=== PATIENT | male | born 1965 | race Caucasian/White ===

== ENCOUNTER 2019-09-12 08:07 | Emergency (ER) | payer BC, SELFPAY ==
[2019-09-12 08:21] VITALS: BP 142/92; PULSE 77; RESP 16; TEMP 36.3; O2SAT 99
--- NOTE | 2019-09-12 08:25 | ED.SKABFB ---
HPI - Skin/Abscess/Foreign Bdy General Chief complaint: Skin/Abscess/Foreign Body Stated complaint: Bump on bottom History of Present Illness HPI narrative: This is a 54-year-old male comes in complaining of having an abscess on his rectal area states that it itches and causes him pain. Patient states that he has been putting some hemorrhoid cream on it that is not working patient denies any bleeding been going on for the approximately 3 to 4 weeks his told him he should come have it checked out patient states he currently lives here he just moved does not have a primary care provider. Related Data Home Medications Medication Instructions Recorded Confirmed No Home Medications 09/12/19 09/12/19 Allergies Allergy/AdvReac Type Severity Reaction Status Date / Time No Known Allergies Allergy Verified 09/12/19 08:32 Review of Systems Review of Systems: Narrative: CONSTITUTIONAL: Denies fever, chills, or sweats. EYES: Denies visual changes, redness, or discharge. ENT: Denies rhinorrhea, congestion, sore throat, or otalgia. CARDIOVASCULAR:Denies chest pain, palpitations, or edema. RESPIRATORY: Denies cough or dyspnea. GASTROINTESTINAL: Denies abdominal pain, nausea, vomiting, or diarrhea. GENITOURINARY: Denies dysuria or hematuria. SKIN:[Denies rash or itching. MUSCULOSKELETAL:Denies back pain, joint pain, or myalgia. Rectal nodule NEUROLOGIC: Denies headache, numbness, or weakness. PSYCHIATRIC:Denies anxiety or depression PMFSH Social History Social History Smoking status: Never smoker Second hand tobacco smoke exposure: No Alcohol intake: current Gender identity (if verbalized by the patient): Male Comments At time as signature, I have reviewed and agree with nursing past medical, social, surgical and family history. Please see nursing chart for further information. There is no relevant family history pertinent to the presenting complaint. Exam Narrative: Exam Narrative: GENERAL:Well-appearing, well-nourished, and in no acute distress. HEAD:Normocephalic, atraumatic. EYES: PERRLA and EOMI. ENT: Nares clear, no rhinorrhea or epistaxis. Mucous membranes moist. NECK: Supple. CHEST: Clear to auscultation. No respiratory distress. HEART: Regular rate and rhythm. No murmur heard. Normal peripheral pulses. ABDOMEN: Soft, nontender, nondistended, normal active bowel sounds. painful swelling in the anal tissues EXTREMITIES: Normal range of motion. No edema. SKIN: Warm, dry, no rash. NEURO: No focal deficits. Alert and oriented x3. Course Vital Signs Vital signs: Vital Signs Temperature 97.3 F L 09/12/19 08:21 Pulse Rate 77 09/12/19 08:21 Respiratory Rate 16 09/12/19 08:21 Blood Pressure 142/92 H 09/12/19 08:21 Pulse Oximetry 99 09/12/19 08:21 Temperature 97.3 F L 09/12/19 08:21 Pulse Rate 77 09/12/19 08:21 Respiratory Rate 16 09/12/19 08:21 Blood Pressure 142/92 H 09/12/19 08:21 Pulse Oximetry 99 09/12/19 08:21 MDM - Skin/Abscess/Foreign Bdy Differential Diagnosis Differential diagnosis: Likely abscess of skin or subcutaneous tissue and cellulitis Discharge Plan Discharge Clinical Impression: External hemorrhoid, thrombosed Patient Disposition: Home, Self-Care Condition: Stable Instructions: Antibiotic Form, Hemorrhoids (ED) Prescriptions: New hydrocortisone-pramoxine 2.5-1 % cream 1 applic RECTAL QID Qty: 30 RF: 0 No Action No Home Medications RF: 0 Follow-up/Referrals: UNKNOWN,DOCTOR [Primary Care Provider] - Time of Disposition: 08:35 Discharge Date/Time: 09/12/19 08:38
== END 2019-09-12 08:38 | disposition home or self-care (01) ==
PROVIDERS: Emergency Provider Nurse Practitioner Family
DX: K64.5 Perianal venous thrombosis (principal)
CPT/HCPCS: 99213; G0463

== ENCOUNTER 2020-01-02 01:58 | Outpatient (CLI) | payer BC, SELFPAY ==
[2020-01-02 18:09] LABS: SARS-CoV-2 RNA PCR Negative
== END 2020-01-02 01:59 | disposition home or self-care (01) ==
LOC: ANHCOVIDDT 01:58
PROVIDERS: Visit Provider Internal Medicine Gastroenterology
DX: Z01.818 Encounter for other preprocedural examination (principal); Z11.59 Encounter for screening for other viral diseases
CPT/HCPCS: 87635; C9803; U0003

== ENCOUNTER 2020-01-05 03:31 | Day surgery (SDC) | payer BC, SELFPAY ==
[2020-01-01 09:41] VITALS: BMI 26.0
[2020-01-05 11:36] VITALS: BP 136/94; PULSE 67; RESP 18; TEMP 36.6; O2SAT 100
[2020-01-05] MEDS: LACTATED RINGERS 1,000 ML 150 ML IV CONT (11:43)
--- NOTE | 2020-01-05 12:03 | WPDANESEPPF ---
Anes - Initial Pre Proc Eval Procedure: Operation Date: 01/05/20 12:30 Proposed Procedures p Screening Colonoscopy - Hira Lind MD Date/Time: 01/05/20 12:03 Surgeon: Hira Lind MD Pre Op Diagnosis: Neoplasm Screening Patient Data Age: 54 Gender: M Height: 5 ft 9 in Weight: 76.7 kg Last Vital Signs Temp 36.6 C 01/05/20 11:36 Pulse 67 01/05/20 11:36 Resp 18 01/05/20 11:36 BP 136/94 H 01/05/20 11:36 Pulse Ox 100 01/05/20 11:36 Allergies Allergy/AdvReac Type Severity Reaction Status Date / Time No Known Allergies Allergy Verified 01/05/20 11:34 Home Medications Medication Instructions Recorded Confirmed Type mesalamine 1.2 gram tablet,delayed 3.6 gm PO DAILY 30 Days #90 tablet 12/18/19 01/01/20 Rx release cholecalciferol (vitamin D3) 10 mcg PO DAILY 01/01/20 01/01/20 History [Vitamin D3] cyanocobalamin (vitamin B-12) 1,000 mcg PO DAILY 01/01/20 01/01/20 History [Vitamin B-12] omega 1-wrd-oie-fish oil [Fish Oil] 1 cap PO DAILY 01/01/20 01/01/20 History red yeast rice 600 mg PO DAILY 01/01/20 01/01/20 History triamcinolone acetonide 1 applic TOPICAL PRN PRN 01/01/20 01/01/20 History Patient hx anesthesia problems: none Family hx anesthesia problems: none [facility] Past Medical History Medical History Blood in stool Ulcerative proctitis Social History Social History Smoking status: Never smoker Second hand tobacco smoke exposure: No Alcohol intake: current Gender identity (if verbalized by the patient): Male Anes - Eval Final PreProcedure Day of Procedure 01/05/20 12:03 Patient weight: normal Heart: regular rate and rhythm Lungs: clear to auscultation Airway: Mallampati scale class II Neurological: alert and oriented Last oral intake: >/= 8 hours ASA classification: II Emergent: no Anesthetic plan: proceed Anesthesia type and monitoring: general GIVS and standard monitoring Informed Consent: The patient's anesthetic plan and its attendant risks and benefits were discussed with the patient/family/POA. Questions were solicited and answers provided to the satisfaction of the patient/family/POA.
--- NOTE | 2020-01-05 13:42 | WPDHPUPDATE1 ---
History and Physical Update Update Date/Time: 01/05/20 13:42 History and Physical has been reviewed, including an updated exam of the patient. There are NO changes in the patient's condition. Risks, benefits, and alternatives have been discussed and questions answered. Patient agrees to proceed with procedure.
[2020-01-05 13:44] VITALS: BP 105/68; PULSE 52; RESP 14; O2SAT 96
[2020-01-05 13:54] VITALS: BP 126/83; PULSE 52; RESP 14; O2SAT 96
[2020-01-05 14:04] VITALS: BP 139/87; PULSE 49; RESP 14; O2SAT 96
== END 2020-01-05 14:25 | disposition home or self-care (01) ==
PROVIDERS: Visit Provider Internal Medicine Gastroenterology
PROC: 0DJD8ZZ Inspection of Lower Intestinal Tract, Via Natural or Artificial Opening Endoscopic (ICD-10-PCS; CPT 45378; principal; 2020-01-05 12:30)
DX: K52.9 Noninfective gastroenteritis and colitis, unspecified (principal); K51.20 Ulcerative (chronic) proctitis without complications
CPT/HCPCS: 45380; 88305; J2704; J7120

== ENCOUNTER 2020-09-04 10:47 | Emergency (ER) | payer BC, SELFPAY ==
[2020-09-04 11:01] VITALS: BP 137/83; PULSE 64; RESP 16; TEMP 36.4; O2SAT 99
--- NOTE | 2020-09-04 11:02 | ED.EYEPROB ---
HPI - Eye Problem General Chief complaint: Eye Problems Stated complaint: right eye redness/swelling Time Seen by Provider: 09/04/20 11:02 Source: patient Mode of arrival: ambulatory Limitations: no limitations History of Present Illness HPI Narrative: Dax John is a 55 yo male with a PMH of ulcerative proctitis who [facility] with swelling of his right eyelid that started 7 days ago with irritation. small lesion o upper lid, inner canthus. Patient has history of stye Related Data Home Medications Medication Instructions Recorded Confirmed cholecalciferol (vitamin D3) 10 mcg PO DAILY 01/01/20 09/04/20 [Vitamin D3] cyanocobalamin (vitamin B-12) 1,000 mcg PO DAILY 01/01/20 09/04/20 [Vitamin B-12] omega 0-xdl-xfw-fish oil [Fish Oil] 1 cap PO DAILY 01/01/20 01/01/20 red yeast rice 600 mg PO DAILY 01/01/20 01/01/20 triamcinolone acetonide 1 applic TOPICAL PRN PRN 01/01/20 01/01/20 mesalamine 1.2 g PO DAILY 09/04/20 09/04/20 Allergies Allergy/AdvReac Type Severity Reaction Status Date / Time No Known Allergies Allergy Verified 01/05/20 11:34 Review of Systems Review of Systems: Narrative: CONSTITUTIONAL: Denies fever, chills, sweats. EYES: Right upper lid swelling on inner canthus x 1 week ENT: Denies rhinorrhea, congestion, sore throat, otalgia. CARDIOVASCULAR: Denies chest pain, palpitations, edema. RESPIRATORY: Denies dyspnea, wheezing, cough GASTROINTESTINAL: Denies abdominal pain, nausea, vomiting, diarrhea. GENITOURINARY: Denies dysuria, hematuria, abnormal discharge SKIN: Denies rash or itching. NEUROLOGIC: Denies numbness, or focal weakness. PSYCHIATRIC: Denies anxiety or depression. COUNT INCLUDES THE [facility] Past Medical History Medical History (Updated 09/04/20 @ 11:21 by Nilam Rosas CNP) Blood in stool Ulcerative proctitis Social History Social History Smoking status: Never smoker Second hand tobacco smoke exposure: No Alcohol intake: current Gender identity (if verbalized by the patient): Male Comments At time of signature, I agree with nursing past medical, surgical, social and family history. There is no relevant family history pertinent to the presenting complaint. Exam Narrative: Exam Narrative: GENERAL: This is a well-nourished, well-developed patient, in mild distress. HEAD: normocephalic, atraumatic. EYES: PERRL. Sclera clear/white. Vision is grossly intact. Swelling right upper eyelid inner canthus with complaints of some visual disturbance because of size of lesion EARS: External ears normal, . Hearing grossly intact. NOSE: External nose normal without nasal discharge, nares without redness, no rhinorrhea. THROAT: Mucous membranes moist, NECK: Neck supple CARDIOVASCULAR: Regular rate and rhythm without murmurs, gallops, or rubs. RESPIRATORY: Clear to auscultation. Breath sounds equal bilaterally. No wheezes, rales, or rhonchi. GASTROINTESTINAL: Abdomen soft, non-tender, SKIN: warm, intact with no suspicious lesions or rash, good texture and turgor. NEURO: awake, alert, and oriented to person, place and time. There were no obvious focal neurologic abnormalities. Steady gait EXTREMITIES: Normal range of motion. BACK: Nontender without deformity Course Course Emergency Course: Patient comes with hordeolum right upper lid that is causing visual disturbance for working Lesion pierced with sterile needle to help start drainage; clera and bllo- minimal amount; given directions to use antibiotic ointment and warm soaks to eye Follow-up with automatic door mechanic if not improved Vital Signs Vital signs: Vital Signs Temperature 97.6 F 09/04/20 11:01 Pulse Rate 64 09/04/20 11:01 Respiratory Rate 16 09/04/20 11:01 Blood Pressure 137/83 09/04/20 11:01 Pulse Oximetry 99 09/04/20 11:01 Temperature 97.6 F 09/04/20 11:01 Pulse Rate 64 09/04/20 11:01 Respiratory Rate 16 09/04/20 11:01 Blood Press
== END 2020-09-04 11:27 | disposition home or self-care (01) ==
PROVIDERS: Emergency Provider Nurse Practitioner
DX: H00.011 Hordeolum externum right upper eyelid (principal)
CPT/HCPCS: 99213; G0463

== ENCOUNTER 2021-06-27 18:35 | Emergency (ER) | payer BC, SELFPAY ==
[2021-06-27 19:02] VITALS: BP 111/65; PULSE 59; RESP 16; TEMP 36.1; O2SAT 100
--- NOTE | 2021-06-27 20:42 | ED.EYEPROB ---
HPI - Eye Problem General Chief complaint: Eye Problems Stated complaint: Eye Irritation Time Seen by Provider: 06/27/21 20:49 Source: patient, RN notes reviewed and old records reviewed Mode of arrival: ambulatory Limitations: no limitations History of Present Illness HPI Narrative: 56-year-old male presents to [facility] with complaints of raised small peanut sized area underneath his left lower eyelid for the past 2 days. Patient has had has a noted stye on the left lower lash line and has appointment with ophthalmology on Saturday. He states he has been applying neomycin eye ointment to his left eye. Patient denies any visual changes any acute sharp pain or any drainage from the left eye MD chief complaint: other (stye and small lesion under left eye) Onset (ago): day(s) (2) Related Data Home Medications Medication Instructions Recorded Confirmed cholecalciferol (vitamin D3) 10 mcg PO DAILY 01/01/20 06/27/21 [Vitamin D3] cyanocobalamin (vitamin B-12) 1,000 mcg PO DAILY 01/01/20 06/27/21 [Vitamin B-12] omega 7-jod-mkh-fish oil [Fish Oil] 1 cap PO DAILY 01/01/20 06/27/21 red yeast rice 600 mg PO DAILY 01/01/20 06/27/21 Allergies Allergy/AdvReac Type Severity Reaction Status Date / Time No Known Allergies Allergy Verified 06/27/21 18:42 Review of Systems Review of Systems: CONSTITUTIONAL: Denies fever, chills, or sweats. EYES: Denies visual changes, redness, or discharge.positive for small stye to left lower eyelid with raised area underneath left eye which has increased in size since this morning. ENT: Denies rhinorrhea, congestion, sore throat, or otalgia. CARDIOVASCULAR: Denies chest pain, palpitations, or edema. RESPIRATORY: Denies cough or dyspnea. GASTROINTESTINAL: Denies abdominal pain, nausea, vomiting, or diarrhea. GENITOURINARY: Denies dysuria or hematuria. SKIN: Denies rash or itching. MUSCULOSKELETAL: Denies back pain, joint pain, or myalgia. NEUROLOGIC: Denies headache, numbness, or weakness. PSYCHIATRIC: Denies anxiety or depression. All systems reviewed & are unremarkable except as noted in HPI and below PMFSH Past Medical History Medical History Blood in stool Encounter for screening colonoscopy Overweight Ulcerative proctitis Social History Social History Smoking status: Never smoker Second hand tobacco smoke exposure: No Alcohol intake: current Gender identity (if verbalized by the patient): Male Comments At time of signature, agree with nursing past medical, surgical, social and family history. There is no relevant family history pertinent to the presenting complaint Exam Narrative: GENERAL: Well-appearing, well-nourished, and in no acute distress. HEAD: Normocephalic, atraumatic.small blister like external hordeolum noted to left lower lash line with raised semifirm area under left eye no pain to area or redness, no visual changes or drainage. EYES: PERRLA and EOMI. ENT: Nares clear, no rhinorrhea or epistaxis. Mucous membranes moist.TM's normal throat pink with no lesions exudates or tonsil enlargement NECK: Supple.no lymphadenopathy CHEST: Clear to auscultation. No respiratory distress. HEART: Regular rate and rhythm. No murmur heard. Normal peripheral pulses. ABDOMEN: Soft, nontender, nondistended, normal active bowel sounds. EXTREMITIES: Normal range of motion. No edema. SKIN: Warm, dry, no rash. NEURO: No focal deficits. Alert and oriented x3. Course Course Level of Care: Express Care Visit Vital Signs Vital signs: Vital Signs Temperature 36.1 C L 06/27/21 19:02 Pulse Rate 59 L 06/27/21 19:02 Respiratory Rate 16 06/27/21 19:02 Blood Pressure 111/65 06/27/21 19:02 Pulse Oximetry 100 06/27/21 19:02 Temperature 36.1 C L 06/27/21 19:02 Pulse Rate 59 L 06/27/21 19:02 Respiratory Rate 16 06/27/21 19:02 Blood Pressure 111/65 06/27/21
== END 2021-06-27 21:05 | disposition home or self-care (01) ==
PROVIDERS: Emergency Provider Registered Nurse
DX: H00.015 Hordeolum externum left lower eyelid (principal)
CPT/HCPCS: 99213; G0463